=== PATIENT | male | born 1965 | race Caucasian/White ===

== ENCOUNTER 2017-12-02 13:11 | Emergency (ER) | payer OTHER ==
[2017-12-02 13:16] VITALS: BP 163/98; TEMP 97.8; BMI 26.6
[2017-12-02 13:42] VITALS: PULSE 74
--- NOTE | 2017-12-02 15:26 | PDOC ---
History of Present Illness <Ayan Rico - Last Filed: 12/02/17 16:00> - General History Source: Patient Exam Limitations: No Limitations - History of Present Illness Initial Comments: 12/02/17 17:07 The patient is a 52 year old male, with a significant past medical history of HTN who presents to the emergency department with L groin pain and nausea for the past 4 days. Patient reports sudden onset of LLQ pain while sitting at work. Patient describes pain as sharp and pulsating. Patient also notes similar flare up of referred lower back pain. Patient reports pain is exacerbated upon deep inspiration and movement. Patient reports using Tylenol however denies any relief. Patient went to PCP office for follow up however was sent to the ED for further evaluation. Patient denies chest pain, palpitations, sob/dyspnea, cough, hemoptysis, diaphoresis, headache or dizziness. Patient denies fever, chills, abdominal pain, nausea, vomit, diarrhea or constipation. No associated numbness/tingling/weakness. Patient denies dysuria, frequency, urgency or hematuria. Patient denies sick contacts or recent travel. Allergies: NKA Past surgical history: ankle Past family history: Mother w hx of Kidney stones Social history: None PCP: Dr. Oh <Carine Alatorre - Last Filed: 12/02/17 17:08> - General Chief Complaint: Pain, Acute Stated Complaint: Left flank pain Time Seen by Provider: 12/02/17 14:40 Past History - Past Medical History COPD: No DVT: No - Suicide/Smoking/Psychosocial Hx Smoking History: Never smoked Information on smoking cessation initiated: No Hx Alcohol Use: No Drug/Substance Use Hx: No Substance Use Type: None <Ayan Rico - Last Filed: 12/02/17 16:00> <Carine Alatorre - Last Filed: 12/02/17 17:08> - Past Medical History Allergies/Adverse Reactions: Allergies Allergy/AdvReac Type Severity Reaction Status Date / Time No Known Allergies Allergy Verified 12/02/17 13:16 Home Medications: Ambulatory Orders Nebivolol HCl [Bystolic] 5 mg PO DAILY 12/02/17 Omeprazole 40 mg PO DAILY 12/02/17 Review of Systems - Review of Systems Able to Perform ROS?: Yes Comments:: 12/02/17 17:07 All other systems reviewed and are negative except noted in HPI <Carine Alatorre - Last Filed: 12/02/17 17:08> *Physical Exam - Vital Signs Last Vital Signs Temp Pulse Resp BP Pulse Ox 97.8 F 74 18 163/98 98 12/02/17 13:14 12/02/17 13:37 12/02/17 13:14 12/02/17 13:14 12/02/17 13:37 <TrishaAyan alves - Last Filed: 12/02/17 16:00> - Vital Signs Last Vital Signs Temp Pulse Resp BP Pulse Ox 97.8 F 74 18 163/98 98 12/02/17 13:14 12/02/17 13:37 12/02/17 13:14 12/02/17 13:14 12/02/17 13:37 - Physical Exam Comments: 12/02/17 17:07 GENERAL: The patient is awake, alert, and fully oriented, Nontoxic - in no acute distress. +uncomfortable appearing with movements. HEAD: Normocephalic, atraumatic. EYES: extraocular movements intact, sclera anicteric, conjunctiva clear. ENT: Normal voice, Moist mucous membranes. NECK: Normal range of motion, No JVD LUNGS: Breath sounds equal, clear to auscultation bilaterally. No wheezes, no rhonchi, no rales. HEART: Regular rate and rhythm, normal S1 and S2 without murmur, rub or gallop. ABDOMEN: Soft, nontender, normoactive bowel sounds. No guarding, no rebound. No masses. No CVA tenderness. +Diffuse tenderness in the L lower back in the lumbar paraspinal area. EXTREMITIES: Normal range of motion, no edema. No clubbing or cyanosis. No cords , erythema, or tenderness. NEUROLOGICAL: No facial asymmetry, Normal speech, normal gait. PSYCH: Normal mood, normal affect. SKIN: Warm, Dry, normal turgor. <Carine Alatorre - Last Filed: 12/02/17 17:08> ED Treatment Course - LABORATORY CBC & Chemistry Diagram: 12/02/17 16:00 12/02/17 16:00 - ADDITIONAL ORDERS Additional order review: Laboratory Results 12/02/17 12/02/17 16:00 15:34 Sodium 141 Potassium 4.1 Chloride 104 Carbon Dioxide 32 Anion Gap 5 L BUN 18 Creatinine 1.0 Creat Clearance w eGFR > 60 Random Glucose 82 Calcium 9.2 Total Bilirubin 0.2 AST 28 ALT 59 Alkaline Phosphatase 90 Total Protein 7.6 Albumin 4.2 Lipase 187 Urine Color Yellow Urine Appearance Slcloudy Urine pH 5.0 Ur Specific [place] 1.028 Urine Protein Negative Urine Glucose (UA) Negative Urine Ketones Negative Urine Blood Negative Urine Nitrite Negative Urine Bilirubin Negative Urine Urobilinogen Negative Ur Leukocyte Esterase Negative 12/02/17 16:00 RBC 5.17 MCV 87.0 MCHC 35.2 RDW 12.7 MPV 10.9 Neutrophils % 51.6 Lymphocytes % 34.4 Monocytes % 11.5 H Eosinophils % 2.1 Basophils % 0.4 - Medications Given in the ED: ED Medications Discontinued Medications Generic Name Dose Route Start Last Admin Trade Name Freq PRN Reason Stop Dose Admin Acetaminophen 650 mg 12/02/17 16:14 12/02/17 16:16 Tylenol - PO 12/02/17 16:15 650 mg ONCE ONE Administration Morphine Sulfate 2 mg 12/02/17 15:32 12/02/17 16:01 Morphine Injection - IVPUSH 12/02/17 15:33 Not Given ONCE ONE <Carine Alatorre - Last Filed: 12/02/17 17:08> Medical Decision Making - Medical Decision Making 12/02/17 15:26 52y m pmhx of htn, hiatal hernia, presents with LLQ pain radiates to the lower back wworse when he breaths. +gf jupmed on his back on wednesday. no fever/chills, v, diarrhea, dysuria, numbness/tingling/weakness, difficulty ambulation. Pt endorses the pain seems to wax an toni, but is constant. associated with nausea. on exam pt appears uncomfortbale mil ddiffuse tenderness in the l flank ddx includes kidney stones vs msk pain will ck labs, ua will give pain meds will reassess <Ayan Rico - Last Filed: 12/02/17 16:00> *DC/Admit/Observation/Transfer <Ayan Rico - Last Filed: 12/02/17 16:00> - Attestations Scribe Attestion: 12/02/17 17:08 Documentation prepared by Carine Alatorre, acting as medical instrument technician for Ayan Rico MD <Carine Alatorre - Last Filed: 12/02/17 17:08> - Referrals Referrals: Boubacar Oh MD [Primary Care Provider] - - Patient Instructions - Post Discharge Activity
[2017-12-02] MEDS ORDERED: morphine CARPU-JECT 2 MG/1 ML DISP.SYRIN IVPUSH ONE (15:32)
[2017-12-02 16:00] LABS: URINE APPEARANCE SLCLOUDY; URINE BILIRUBIN NEGATIVE (<2.0 mg/dL); URINE BLOOD NEGATIVE (NEGATIVE); URINE COLOR YELLOW; URINE GLUCOSE (UA) NEGATIVE (NEGATIVE); URINE KETONE NEGATIVE (NEGATIVE); URINE LEUK ESTERASE NEGATIVE (NEGATIVE); URINE NITRITE NEGATIVE (NEGATIVE); URINE PROTEIN NEGATIVE (NEGATIVE); URINE UROBILINOGEN NEGATIVE mg/dL (0.2-1.0)
[2017-12-02] MEDS ORDERED: ACETAMINOPHEN 325 MG TABLET (FP) PO ONE (16:14)
[2017-12-02 16:20] LABS: BASO % 0.4 % (0-2.0); EOS % 2.1 % (0-4.5); HEMOGLOBIN 15.8 GM/dL (11.7-16.9); LYMPH % 34.4 % (8-40); MCH 30.6 pg (25.7-33.7); MCHC 35.2 g/dl (32.0-35.9); MEAN PLT VOLUME 10.9 fl (7.5-11.1); MONO % 11.5 % (3.8-10.2); NEUT % 51.6 % (42.8-82.8); PLATELET COUNT 264 K/MM3 (134-434); RBC 5.17 M/mm3 (4.00-5.60); RDW 12.7 % (11.9-15.9)
[2017-12-02] MEDS ORDERED: ACETAMINOPHEN 325 MG TABLET (FP) ONE (16:24)
[2017-12-02 16:46] LABS: ALBUMIN 4.2 g/dl (3.4-5.0); ALK PHOS 90 U/L (45-117); ANION GAP 5 (8-16); BILIRUBIN,TOTAL 0.2 mg/dL (0.2-1.0); BLOOD UREA NITROGEN 18 mg/dL (7-18); CALCIUM 9.2 mg/dL (8.5-10.1); CHLORIDE 104 mmol/L (98-107); CO2 32 mmol/L (21-32); GLUCOSE,RANDOM 82 mg/dL (74-106); LIPASE 187 U/L (73-393); POTASSIUM 4.1 mmol/L (3.5-5.1); SGOT/AST 28 U/L (15-37); SGPT/ALT 59 U/L (12-78); SODIUM 141 mmol/L (136-145); TOT PROT 7.6 g/dl (6.4-8.2)
[2017-12-02] MEDS ORDERED: KETOROLAC TROMETHAMINE 30 MG/1 ML VIAL IVPUSH ONE (16:52)
[2017-12-02] MEDS ORDERED: KETOROLAC TROMETHAMINE 30 MG/1 ML VIAL ONE (17:31)
--- NOTE | 2017-12-02 18:15 | PDOC ---
*Physical Exam - Vital Signs Last Vital Signs Temp Pulse Resp BP Pulse Ox 97.8 F 74 18 163/98 98 12/02/17 13:14 12/02/17 13:37 12/02/17 13:14 12/02/17 13:14 12/02/17 13:37 - Physical Exam Comments: 12/02/17 18:11 Gen: aaox3, nad back: no cva ttp, paraspinal ttp L low back, FROM of the back, ambulatory with a steady gait, no signs/symptoms of caude equina ED Treatment Course - LABORATORY CBC & Chemistry Diagram: 12/02/17 16:00 12/02/17 16:00 - ADDITIONAL ORDERS Additional order review: Laboratory Results 12/02/17 12/02/17 16:00 15:34 Sodium 141 Potassium 4.1 Chloride 104 Carbon Dioxide 32 Anion Gap 5 L BUN 18 Creatinine 1.0 Creat Clearance w eGFR > 60 Random Glucose 82 Calcium 9.2 Total Bilirubin 0.2 AST 28 ALT 59 Alkaline Phosphatase 90 Total Protein 7.6 Albumin 4.2 Lipase 187 Urine Color Yellow Urine Appearance Slcloudy Urine pH 5.0 Ur Specific [place] 1.028 Urine Protein Negative Urine Glucose (UA) Negative Urine Ketones Negative Urine Blood Negative Urine Nitrite Negative Urine Bilirubin Negative Urine Urobilinogen Negative Ur Leukocyte Esterase Negative 12/02/17 16:00 RBC 5.17 MCV 87.0 MCHC 35.2 RDW 12.7 MPV 10.9 Neutrophils % 51.6 Lymphocytes % 34.4 Monocytes % 11.5 H Eosinophils % 2.1 Basophils % 0.4 - Medications Given in the ED: ED Medications Discontinued Medications Generic Name Dose Route Start Last Admin Trade Name El PRN Reason Stop Dose Admin Acetaminophen 650 mg 12/02/17 16:14 12/02/17 16:16 Tylenol - PO 12/02/17 16:15 650 mg ONCE ONE Administration Ketorolac Tromethamine 30 mg 12/02/17 16:52 12/02/17 18:00 Toradol Injection - IVPUSH 12/02/17 16:53 30 mg ONCE ONE Administration Morphine Sulfate 2 mg 12/02/17 15:32 12/02/17 16:01 Morphine Injection - IVPUSH 12/02/17 15:33 Not Given ONCE ONE Medical Decision Making - Medical Decision Making 12/02/17 18:12 a/p: 52yo male signed out pending CT abd/pelvis for L flank pain -no hematuria -ct without acute findings no stones -pain improved -full range of motion of the back -paraspinal ttp, improved last night with epson salt bath -recommended outpt follow up with ortho and also with PMD. -neuro intact -stable for d/c to home *DC/Admit/Observation/Transfer Diagnosis at time of Disposition: Flank pain, Low back pain, Solitary pulmonary nodule - Discharge Dispostion Disposition: HOME Condition at time of disposition: Stable Admit: No - Referrals Referrals: Boubacar Oh MD [Primary Care Provider] - Dipesh Zuñiga MD [Staff Physician] - - Patient Instructions Printed Discharge Instructions: DI for Low Back Pain Additional Instructions: Please make an appointment to see your PMD. Please make an appointment to see your orthopedist. Please take tylenol and motrin for pain. Please return to the ED with any further complaints. - Post Discharge Activity - Attestations Physician Attestion: 12/02/17 18:15 I, Dr. Tri Daniels, DO, attest that this document has been prepared under my direction and personally reviewed by me in its entirety. I further attest, that it accurately reflects all work, treatment, procedures and medical decision -making performed by me.
== END 2017-12-02 18:34 | disposition home or self-care (01) ==
LOC: JER 13:11
PROC: 3E0333Z Introduction of Anti-inflammatory into Peripheral Vein, Percutaneous Approach (ICD-10-PCS; principal; 2017-12-02)
PROC: 3E033NZ Introduction of Analgesics, Hypnotics, Sedatives into Peripheral Vein, Percutaneous Approach (ICD-10-PCS; 2017-12-02)
DX: M54.5 Low back pain (principal); R91.1 Solitary pulmonary nodule; I10 Essential (primary) hypertension; Z87.19 Personal history of other diseases of the digestive system
CPT/HCPCS: 36415; 74176; 80053; 81003; 83690; 85025; 99283-25